=== PATIENT | male | born 2000 | race Caucasian/White ===

== ENCOUNTER 2020-10-10 12:07 | Emergency (ER) | payer OTHER ==
[~2020-10-10] VITALS: Ht 185.4 cm; Wt 80.3 kg
[2020-10-10] MEDS ORDERED: Norco 5-325 Ta1 EACH PO (13:38)
== END 2020-10-10 13:59 | disposition home or self-care (01) ==
LOC: ER 12:07
DX: S89.91XA Unspecified injury of right lower leg, initial encounter (principal); M25.461 Effusion, right knee; X50.1XXA Overexertion from prolonged static or awkward postures, initial encounter
CPT/HCPCS: 73564; 99283-25; A9270